=== PATIENT | female | born 1990 | race Caucasian/White ===

== ENCOUNTER 2016-12-04 13:13 | Emergency (ER) | payer BC ==
[2016-12-04 15:39] VITALS: RESP 16
--- NOTE | 2016-12-04 15:44 | ED ---
Chest Pain HPI - General Chief Complaint: Chest Pain Stated Complaint: Chest Pain Time Seen by Provider: 12/04/16 15:28 Source: patient, RN notes reviewed Mode of arrival: ambulatory Limitations: no limitations - History of Present Illness Initial Comments: 26-year-old female presents emergency Department chief complaint of chest pain. Patient states pain started yesterday and progressed since today. Patient states that she has pain in her mid chest and is nonradiating. Patient denies any palpitations, fever, diaphoretic episodes, nausea, vomiting. Patient has no known cardiac issues. Patient states she does take medication for fibromyalgia. Patient states that the pain is reproducible when she presses on it is worse with twisting bending. Patient denies any history of PE or DVT. Patient denies any recent traveling. Denies any leg pain. - Related Data Home Medications Medication Instructions Recorded Confirmed Acetaminophen [Tylenol] 1,000 mg PO Q4-6H PRN 12/04/16 12/04/16 Butalb/Asprin/Caff 50-325-40Mg 1 cap PO Q4HR PRN 12/04/16 12/04/16 [Fiorinal 50-325-40 MG] DULoxetine HCL [Cymbalta] 60 mg PO DAILY 12/04/16 12/04/16 Dextroamphetamine/Amphetamine 30 mg PO QAM 12/04/16 12/04/16 [Adderall Xr] Methocarbamol [Robaxin] 1,500 mg PO TID 12/04/16 12/04/16 Pregabalin [Lyrica] 75 mg PO TID 12/04/16 12/04/16 lamoTRIgine [LaMICtal] 150 mg PO DAILY 12/04/16 12/04/16 Allergies Allergy/AdvReac Type Severity Reaction Status Date / Time Sulfa (Sulfonamide Allergy Rash/Hives Verified 12/04/16 15:42 Antibiotics) Review of Systems ROS Statement: Those systems with pertinent positive or pertinent negative responses have been documented in the HPI. ROS Other: All systems not noted in ROS Statement are negative. EKG Findings - EKG Comments: EKG Findings:: EKG performed at 13:32 sinus tachycardia rate of 111 VT interval 150, QRS duration 86, QT/QTC 322/437 Past Medical History Past Medical History: Fibromyalgia Additional Past Medical History / Comment(s): migraines History of Any Multi-Drug Resistant Organisms: None Reported Past Surgical History: Orthopedic Surgery Additional Past Surgical History / Comment(s): jonas ankles Past Psychological History: Anxiety, Depression Smoking Status: Never smoker Past Alcohol Use History: Occasional Past Drug Use History: None Reported General Exam Limitations: no limitations General appearance: alert, in no apparent distress Head exam: Present: atraumatic, normocephalic, normal inspection Respiratory exam: Present: normal lung sounds bilaterally, chest wall tenderness. Absent: respiratory distress, wheezes, rales, rhonchi, stridor Cardiovascular Exam: Present: normal rhythm, tachycardia, normal heart sounds. Absent: systolic murmur, diastolic murmur, rubs, gallop, clicks GI/Abdominal exam: Present: soft, normal bowel sounds. Absent: distended, tenderness, guarding, rebound, rigid Neurological exam: Present: alert, oriented X3, CN II-XII intact Skin exam: Present: warm, dry, intact, normal color. Absent: rash Course Vital Signs 12/04/16 12/04/16 13:24 15:34 Temperature 98.8 F 98.7 F Pulse Rate 125 H 95 Respiratory 20 16 Rate Blood Pressure 140/85 125/78 O2 Sat by Pulse 100 100 Oximetry Chest Pain MDM - MDM 26-year-old female presented for reproducible chest pain. Patient's chest x-ray , EKG, lab work within normal limits. Patient's pain is reproducible consistent with costochondritis. Patient will be discharged at this time. Return parameters were discussed. Disposition Clinical Impression: Costochondritis, acute, Chest wall pain Disposition: HOME SELF-CARE Condition: Stable Instructions: Chest Pain (ED) Additional Instructions: Please return to the Emergency Department if symptoms worsen or any other concerns. Time of Disposition: 16:40
[2016-12-04 16:03] LABS: Basophils % (A) 1 %; CH 27.6; CHCM 33.8; Eosinophils # (A) 0.1 k/uL (0-0.7); Eosinophils % (A) 2 %; HCT 41.2 % (34.0-46.0); HDW 2.49; HGB 13.4 gm/dL (11.4-16.0); Luc # (Auto) 0.09; Luc % (Auto) 1; Lymphocytes # (A) 1.9 k/uL (1.0-4.8); Lymphocytes % (A) 24 %; MCH 26.7 pg (25.0-35.0); MCHC 32.6 g/dL (31.0-37.0); Mean Platelet Volume 7.5; Monocytes # (A) 0.4 k/uL (0-1.0); Monocytes % (A) 5 %; Neutrophils # (A) 5.4 k/uL (1.3-7.7); Neutrophils % (A) 68 %; RBC 5.03 m/uL (3.80-5.40); RDW 14.4 % (11.5-15.5); WBC 7.9 k/uL (3.8-10.6); WBC (Perox) 8.37
[2016-12-04 16:12] LABS: HCG,Qualitative Serum Not Detected
[2016-12-04 16:20] LABS: Anion Gap 10 mmol/L; Blood Urea Nitrogen 6 mg/dL (7-17); Calcium 9.2 mg/dL (8.4-10.2); Carbon Dioxide 25 mmol/L (22-30); Chloride 106 mmol/L (98-107); Glucose 90 mg/dL (74-99); Non-African American GFR(MDRD) >60 (>60 ml/min/1.73 sqM); Potassium 4.2 mmol/L (3.5-5.1); Sodium 141 mmol/L (137-145)
--- NOTE | 2016-12-04 16:36 | XR ---
EXAMINATION TYPE: XR chest 2V DATE OF EXAM: 12/04/2016 4:30 PM COMPARISON: NONE INDICATION: Cough, pain, sternal pain that worsens with inspiration and movement TECHNIQUE: Frontal and lateral views of the chest are obtained. FINDINGS: The heart size is normal. The pulmonary vasculature is normal. The lungs are clear. No acute osseous abnormality is identified. Retrosternal space appears unremark able. IMPRESSION: 1. No acute pulmonary process.
[2016-12-04] MEDS ORDERED: KETOROLAC 30 MG/ML 1 ML VIAL IVP STA (16:47)
[2016-12-04 16:54] VITALS: BP 129/63; PULSE 97; TEMP 98.8
== END 2016-12-04 17:01 | disposition home or self-care (01) ==
LOC: EC 13:13
DX: M94.0 Chondrocostal junction syndrome [Tietze] (principal); M79.7 Fibromyalgia; Z79.899 Other long term (current) drug therapy; Z88.2 Allergy status to sulfonamides; F41.9 Anxiety disorder, unspecified; F32.9 Major depressive disorder, single episode, unspecified
CPT/HCPCS: 36415; 93005; 85379; 80048; 85025; 84703; 80306; 71020; 96374; 99285; J1885

== ENCOUNTER 2019-10-25 16:02 | Emergency (ER) | payer OTHER, BC ==
[2019-10-25 16:13] VITALS: RESP 16; TEMP 97.8
[2019-10-25] MEDS ORDERED: DIAZEPAM 5 MG/ML 2 ML INJ IM STA (16:39)
[2019-10-25] MEDS ORDERED: MORPHINE SULFATE 4 MG/ML SYRINGE IM STA (16:39)
[2019-10-25] MEDS ORDERED: DEXAMETHASONE SOD PHOSPHATE 10 MG/ML 1 ML VIAL IM STA (16:39)
--- NOTE | 2019-10-25 16:43 | ED ---
General Adult HPI - General Chief complaint: Back Pain/Injury Stated complaint: back, leg numbness Time Seen by Provider: 10/25/19 16:27 Source: patient, RN notes reviewed, old records reviewed Mode of arrival: wheelchair Limitations: no limitations - History of Present Illness Initial comments: 29-year-old female presents for low back pain. Patient has history of chronic low back pain and has followed with neurosurgery at [facility]. She had an MRI in February of this year which showed disc herniation at L5-S1. She states that she's had worsening pain over the past 5 days. She had a coughing spell 5 days ago which resulted in worsening pain. She states she has paresthesias and numbness on the lateral aspects of the abdomen legs when st anding. She states she has been incontinent of urine. She denies stool incontinence. Denies fever or chills. No IV drug use. - Related Data Home Medications Medication Instructions Recorded Confirmed Acetaminophen [Tylenol] 1,000 mg PO Q4-6H PRN 12/04/16 12/04/16 Butalb/Asprin/Caff 50-325-40Mg 1 cap PO Q4HR PRN 12/04/16 12/04/16 [Fiorinal 50-325-40 MG] DULoxetine HCL [Cymbalta] 60 mg PO DAILY 12/04/16 12/04/16 Dextroamphetamine/Amphetamine 30 mg PO QAM 12/04/16 12/04/16 [Adderall Xr] Methocarbamol [Robaxin] 1,500 mg PO TID 12/04/16 12/04/16 Pregabalin [Lyrica] 75 mg PO TID 12/04/16 12/04/16 lamoTRIgine [LaMICtal] 150 mg PO DAILY 12/04/16 12/04/16 Previous Rx's Medication Instructions Recorded Ketorolac [Toradol] 10 mg PO Q8HR #15 tab 12/04/16 Diazepam [Valium] 5 mg PO HS PRN #5 tab 10/25/19 Ibuprofen [Motrin] 600 mg PO Q8HR PRN #24 tab 10/25/19 Lidocaine [Lidoderm 5% Patch] 1 patch TRANSDERM DAILY #10 patch 10/25/19 Allergies Allergy/AdvReac Type Severity Reaction Status Date / Time Sulfa (Sulfonamide Allergy Rash/Hives Verified 10/25/19 16:13 Antibiotics) Review of Systems ROS Statement: Those systems with pertinent positive or pertinent negative responses have been documented in the HPI. ROS Other: All systems not noted in ROS Statement are negative. Past Medical History Past Medical History: Fibromyalgia Additional Past Medical History / Comment(s): migraines History of Any Multi-Drug Resistant Organisms: None Reported Past Surgical History: Orthopedic Surgery Additional Past Surgical History / Comment(s): jonas ankles Past Psychological History: Anxiety, Depression Smoking Status: Never smoker Past Alcohol Use History: Occasional Past Drug Use History: None Reported General Exam Limitations: no limitations General appearance: alert, in no apparent distress Head exam: Present: atraumatic, normocephalic Eye exam: Present: normal appearance, PERRL ENT exam: Present: normal exam Neck exam: Present: normal inspection. Absent: tenderness, meningismus Respiratory exam: Present: normal lung sounds bilaterally. Absent: respiratory distress, wheezes Cardiovascular Exam: Present: regular rate, normal rhythm GI/Abdominal exam: Present: soft. Absent: distended, tenderness Extremities exam: Present: normal inspection, normal capillary refill. Absent: pedal edema, calf tenderness Back exam: Present: paraspinal tenderness (Lumbar sacral), vertebral tenderness Neurological exam: Present: alert, oriented X3, CN II-XII intact Psychiatric exam: Present: normal affect, normal mood Skin exam: Present: warm, dry, intact. Absent: cyanosis, diaphoretic Course Vital Signs 10/25/19 16:11 Temperature 97.8 F Pulse Rate 95 Respiratory 16 Rate Blood Pressure 102/74 O2 Sat by Pulse 98 Oximetry - Reevaluation(s) Reevaluation #1: 10/25/19 18:41 Patient reevaluated after medication, feeling much better. She is ambulating throughout the department. Medical Decision Making - Medical Decision Making 29-year-old female with acute on chronic back pain. No saddle anesthesia. Normal gait. CT performed of the lumbar spine, negative for acute fracture subluxation, normal disks, no cord compression. Patient has follow-up with both primary care and she has an appointment with the spinal surgeon. - Lab Data Lab Results 10/25/19 10/25/19 Range/Units 16:45 16:45 Urine Color Yellow Urine Appearance Clear (Clear) Urine pH 7.0 (5.0-8.0) Ur Specific [place] 1.018 (1.001-1.035) Urine Protein Negative (Negative) Urine Glucose (UA) Negative (Negative) Urine Ketones Negative (Negative) Urine Blood Negative (Negative) Urine Nitrite Negative (Negative) Urine Bilirubin Negative (Negative) Urine Urobilinogen <2.0 (<2.0) mg/dL Ur Leukocyte Esterase Negative (Negative) Urine HCG, Qual Not Detected (Not Detectd) Disposition Clinical Impression: Strain of lumbar region, Mechanical back pain Disposition: HOME SELF-CARE Condition: Good Instructions (If sedation given, give patient instructions): Acute Low Back Pain (ED) Prescriptions: Lidocaine [Lidoderm 5% Patch] 1 patch TRANSDERM DAILY #10 patch Ibuprofen [Motrin] 600 mg PO Q8HR PRN #24 tab PRN Reason: Pain Diazepam [Valium] 5 mg PO HS PRN #5 tab PRN Reason: Muscle Spasm Is patient prescribed a controlled substance at d/c from ED?: No Referrals: Alisha Singh MD [Primary Care Provider] - 1-2 days Time of Disposition: 18:44
[2019-10-25 17:07] LABS: Appearance,Urine Clear (Clear); Bilirubin,Urine Negative (Negative); Blood,Urine Negative (Negative); Color,Urine Yellow; Glucose,Urine (UA) Negative (Negative); Ketones,Urine Negative (Negative); Leukocyte Esterase,Urine Negative (Negative); Nitrite,Urine Negative (Negative); Protein,Urine Negative (Negative); Specific Gravity,Urine 1.018 (1.001-1.035); Urobilinogen,Urine <2.0 mg/dL (<2.0)
--- NOTE | 2019-10-25 17:38 | CT ---
EXAMINATION TYPE: CT lumbar spine wo con DATE OF EXAM: 10/25/2019 COMPARISON: None HISTORY: Low back pain radiating down bilateral legs. CT DLP: 2279.4 mGycm Automated exposure control for dose reduction was used. Images were obtained from T12 to S3 vertebra with no contrast. Lumbar vertebra have normal spacing and alignment. Posterior elements are intact. Facet joints appear normal. There is no compression fracture. There is no evidence of spinal stenosis. There is no evide nce of lumbar disc herniation. Sacroiliac joints appear intact. I see no bony destructive process. there is no lumbar paraspinal mass. Kidneys show no hydronephrosis. IMPRESSION: Negative CT scan lumbar spine.
[2019-10-25] MEDS ORDERED: LIDOCAINE 5% PATCH TOPICAL STA (18:56)
[2019-10-25 19:05] VITALS: BP 132/85; PULSE 85
[2019-10-26] MEDS ORDERED: LIDOCAINE 5% PATCH TOPICAL SCH (09:00)
== END 2019-10-25 19:07 | disposition home or self-care (01) ==
LOC: EC 16:02
DX: S39.012A Strain of muscle, fascia and tendon of lower back, initial encounter (principal); M79.7 Fibromyalgia; F41.9 Anxiety disorder, unspecified; F32.9 Major depressive disorder, single episode, unspecified; Z79.899 Other long term (current) drug therapy; Z88.2 Allergy status to sulfonamides
CPT/HCPCS: 81003; 81025; 72131; 99284; 96372 ×3; J2270; J1100; J3360

== ENCOUNTER 2019-12-28 18:59 | Emergency (ER) | payer BC ==
[2019-12-28 19:19] VITALS: BP 124/83; PULSE 87; RESP 18; TEMP 97.9
[2019-12-28] MEDS ORDERED: KETOROLAC 60 MG/2 ML VIAL IM STA (19:32)
--- NOTE | 2019-12-28 19:51 | XR ---
EXAMINATION TYPE: XR scapula LT DATE OF EXAM: 12/28/2019 COMPARISON: NONE HISTORY: Pain TECHNIQUE: 2 views FINDINGS: Shoulder joint appears intact. Scapula appears normal. IMPRESSION: Normal left scapula exam.
--- NOTE | 2019-12-28 19:51 | XR ---
EXAMINATION TYPE: XR shoulder complete LT DATE OF EXAM: 12/28/2019 COMPARISON: None HISTORY: Older pain TECHNIQUE: 3 views FINDINGS: Glenohumeral joint is intact. I see no fracture nor dislocation. Soft tissues appear normal . IMPRESSION: Normal left shoulder.
--- NOTE | 2019-12-28 20:35 | ED ---
General Adult HPI - General Chief complaint: Extremity Injury, Upper Stated complaint: shoulder pain Time Seen by Provider: 12/28/19 19:21 Source: patient, RN notes reviewed, old records reviewed Mode of arrival: ambulatory Limitations: no limitations - History of Present Illness Initial comments: 29-year-old female patient past history of fibromyalgia and chronic back pain presents to ED for chief complaint of left shoulder pain. Patient reports that her left shoulder has been bothering her for approximately 2 weeks. Please that she slept on it wrong. Also states that she also had an pain approximate 6 months ago that lasted for a couple of weeks before getting better. Patient reports that the pain is reproducible range of motion. Patient does take opiates regularly for chronic pain. Patient was seen by her primary care provider for this yesterday who administered a dose of Toradol. Patient was that she continues to be in pain. Denies any other complaints. Systemic: Pt denies fatigue, fever/chills, rash. Pt denies weakness, night sweats, weight loss. Neuro: Pt denies headache, visual disturbances, syncope or pre-syncope. HEENT: Pt denies ocular discharge or irritation, otalgia, rhinorrhea, pharyngitis or notable lymphadenopathy. Cardiopulmonary: Pt denies chest pain, SOB, heart palpitations, dyspnea on exertion. Abdominal/GI: Pt denies abdominal pain, n/v/d. : Pt denies dysuria, burning w/ urination, frequency/urgency. Denies new onset urinary or bowel incontinence. MSK: Pt denies myalgia, function in extremities. Neuro: Pt denies new onset weakness, paresthesias. - Related Data Home Medications Medication Instructions Recorded Confirmed Acetaminophen [Tylenol] 1,000 mg PO Q4-6H PRN 12/04/16 12/04/16 Butalb/Asprin/Caff 50-325-40Mg 1 cap PO Q4HR PRN 12/04/16 12/04/16 [Fiorinal 50-325-40 MG] DULoxetine HCL [Cymbalta] 60 mg PO DAILY 12/04/16 12/04/16 Dextroamphetamine/Amphetamine 30 mg PO QAM 12/04/16 12/04/16 [Adderall Xr] Methocarbamol [Robaxin] 1,500 mg PO TID 12/04/16 12/04/16 Pregabalin [Lyrica] 75 mg PO TID 12/04/16 12/04/16 lamoTRIgine [LaMICtal] 150 mg PO DAILY 12/04/16 12/04/16 Previous Rx's Medication Instructions Recorded Ketorolac [Toradol] 10 mg PO Q8HR #15 tab 12/04/16 Diazepam [Valium] 5 mg PO HS PRN #5 tab 10/25/19 Ibuprofen [Motrin] 600 mg PO Q8HR PRN #24 tab 10/25/19 Lidocaine [Lidoderm 5% Patch] 1 patch TRANSDERM DAILY #10 patch 10/25/19 Allergies Allergy/AdvReac Type Severity Reaction Status Date / Time Sulfa (Sulfonamide Allergy Rash/Hives Verified 10/25/19 16:13 Antibiotics) Review of Systems ROS Statement: Those systems with pertinent positive or pertinent negative responses have been documented in the HPI. ROS Other: All systems not noted in ROS Statement are negative. Past Medical History Past Medical History: Fibromyalgia Additional Past Medical History / Comment(s): migraines History of Any Multi-Drug Resistant Organisms: None Reported Past Surgical History: Orthopedic Surgery Additional Past Surgical History / Comment(s): jonas ankles Past Psychological History: Anxiety, Depression Smoking Status: Current every day smoker Past Alcohol Use History: Occasional Past Drug Use History: None Reported General Exam - General Exam Comments Initial Comments: Constitutional: NAD, AOX3, Pt has pleasant affect. HEENT: NC/AT, trachea midline, neck supple, no lymphadenopathy. Posterior pharynx non erythematous, without exudates. External ears appear normal, without discharge. Mucous membranes moist. Eyes PERRLA, EOM intact. There is no scleral icterus. No pallor noted. Cardiopulmonary: RRR, no murmurs, rubs or gallops, no JVD noted. Lungs CTAB in anterior and posterior christian. No peripheral edema. Abdominal exam: Abdomen soft and non-distended. Abdomen non-tender to palpation in all 4 quadrants. Bowel sounds active in LLQ. No hepatosplenomegaly. No ecchymosis Neuro: CN II-XII grossly intact. No nuchal rigidity. No raccon eyes, no espinoza sign, no hemotympanum. No cervical spinal tenderness. MSK: Left posterior shoulder mildly tender to palpation. No skin changes. Neurovascularly intact. Full range of motion of arm is intact but does cause discomfort. empty can test is positive. No posterior calf tenderness bilaterally, homans sign negative bilaterally. Posterior tibialis and radial pulse +2 bilaterally. Sensation intact in upper and lower extremities. Full active ROM in lower extremities, 5/5 stregnth. Limitations: no limitations Course Vital Signs 12/28/19 19:14 Temperature 97.9 F Pulse Rate 87 Respiratory 18 Rate Blood Pressure 124/83 O2 Sat by Pulse 100 Oximetry Medical Decision Making - Medical Decision Making 29-year-old female patient past history of fibromyalgia and chronic back pain presents to ED for chief complaint of left shoulder pain. Patient reports that her left shoulder has been bothering her for approximately 2 weeks. Please that she slept on it wrong. Also states that she also had an pain approximate 6 months ago that lasted for a couple of weeks before getting better. Patient reports that the pain is reproducible range of motion. Patient does take opiates regularly for chronic pain. Patient was seen by her primary care provider for this yesterday who administered a dose of Toradol. Patient was that she continues to be in pain. Denies any other complaints. Patient also was stable, afebrile. Physical exam displayed: Left posterior shoulder mildly tender to palpation. No skin changes. Neurovascularly intact. Full range of motion of arm is intact but does cause discomfort. empty can test is positive. Plain film shoulder scapular negative. Patient had minimal improvement with Toradol, request further analgesia. Patient was administered low-dose of morphine. Patient be discharged for follow-up with primary care provider orthopedic consult. Case discussed with Dr. Ram. Disposition Clinical Impression: Sprain of left shoulder Disposition: HOME SELF-CARE Condition: Stable Instructions (If sedation given, give patient instructions): Shoulder Sprain (ED) Additional Instructions: Follow-up with primary care provider orthopedic consult tomorrow. Return to ER if condition worsens. Is patient prescribed a controlled substance at d/c from ED?: No Referrals: Alisha Singh MD [Primary Care Provider] - 1-2 days Christofer Carlisle MD [STAFF PHYSICIAN] - 1-2 days
[2019-12-28] MEDS ORDERED: MORPHINE SULFATE 4 MG/ML SYRINGE IM STA (20:53)
== END 2019-12-28 21:05 | disposition home or self-care (01) ==
LOC: EC 18:59
DX: S43.402A Unspecified sprain of left shoulder joint, initial encounter (principal); M79.7 Fibromyalgia; G89.29 Other chronic pain; M54.9 Dorsalgia, unspecified; F41.9 Anxiety disorder, unspecified; F32.9 Major depressive disorder, single episode, unspecified; F17.200 Nicotine dependence, unspecified, uncomplicated; Z98.890 Other specified postprocedural states; Z88.2 Allergy status to sulfonamides; X58.XXXA Exposure to other specified factors, initial encounter
CPT/HCPCS: 73030; 73010; 96372 ×2; 99284; J2270; J1885